=== PATIENT | male | born 1950 | race Two or more races ===

== ENCOUNTER → 2016-07-04 | Outpatient (CLI) | payer MEDICARE, MEDICAID ==
[~2016-07-04] MED LIST: ABILIFY10 MG ORAL; AUGMENTIN 500-1 EACH ORAL; CYMBALTA60 MG ORAL; DOXAZOSIN MESYLA8 MG ORAL; NORCO 5-325 TA1 EACH ORAL; VENLAFAXINE HCL25 MG ORAL; WELLBUTRIN75 MG ORAL
--- NOTE | 2016-07-04 14:57 | GI Initial Consult Note ---
RaisaKendy Kelechi N.PNicole 07/04/16 1457: History of Present Illness General Date patient seen: Jul 04, 2016 Time patient seen: 14:51 Referring physician: STEFAN Reason for Consultation: PANCREATIC LESION Present Illness HPI 66 year old male referred to [facility] by Dr. York to evaluate pancreatic lesion s/ p abdominal pelvis CT & MRI. Patient presents today with occasional abdominal pain, periods of constipation, nausea and abdominal bloating. His last colonoscopy was approximately 3 years ago where the patient states was unremarkable. Home Meds Active Scripts Hydrocodone Bit/Acetaminophen 5-325* (NORCO 5-325*) 1 Each Tablet, 1 TAB ORAL Q6H Y for For Pain, #20 TAB 0 Refills Prov:OSMAN AYALA M.D. 06/14/13 Reported Medications Bupropion Hcl* (WELLBUTRIN*) 75 Mg Tablet, 75 MG ORAL DAILY for 30 Days, TAB 0 Refills 06/14/13 Venlafaxine Hcl* (EFFEXOR*) 25 Mg Tablet, 150 MG ORAL DAILY, TAB 06/14/13 Doxazosin Mesylate (DOXAZOSIN MESYLATE) 8 Mg Tablet, 8 MG ORAL DAILY, TAB 06/14/13 Med list reviewed/reconciled: Yes Allergies: Coded Allergies: No Known Allergies (Unverified , 06/14/13) Patient History History Provided By: Patient, Medical Record PMH Narrative Sleep apnea c PCP PSHMx Prostate CA surgery Social History: Reports: alcohol use - social, other - caffiene, smoking - social Review of Systems All Other Systems: negative except mentioned in HPI Physical Exam T 98.3 BP 120/79 P 85 97 RA HT 5/7 WT 174.3 (denies weight loss) Sp02 EP Interpretation: reviewed General Appearance: well appearing, no apparent distress, alert Head: normocephalic EENT: normal ENT inspection Neck: supple Respiratory: normal breath sounds, no respiratory distress Cardiovascular: normal rate Gastrointestinal: normal inspection, non tender, soft, normal bowel sounds Rectal: deferred Musculoskeletal: back normal Neurologic: normal inspection, alert, oriented x3, responsive Psychiatric: normal inspection, judgement/insight normal Skin: normal inspection, normal color, no rash, warm/dry Lymphatic: normal inspection, no adenopathy GI: Plan Problems: (1) Pancreatic lesion (2) Encounter for diagnostic endoscopy (3) Constipated Plan EUS scheduled on 3/15 - NPO @ [place] day prior procedure acknowledged by patient. Rx Linzess 145mcg Seen with Dr. Galindo. Thank you for referring this patient. NICO GALINDO 07/08/16 0856: History of Present Illness Present Illness Home Meds Active Scripts Hydrocodone Bit/Acetaminophen 5-325* (NORCO 5-325*) 1 Each Tablet, 1 TAB ORAL Q6H Y for For Pain, #20 TAB 0 Refills Prov:OSMAN AYALA M.D. 06/14/13 Reported Medications Bupropion Hcl* (WELLBUTRIN*) 75 Mg Tablet, 75 MG ORAL DAILY for 30 Days, TAB 0 Refills 06/14/13 Venlafaxine Hcl* (EFFEXOR*) 25 Mg Tablet, 150 MG ORAL DAILY, TAB 06/14/13 Doxazosin Mesylate (DOXAZOSIN MESYLATE) 8 Mg Tablet, 8 MG ORAL DAILY, TAB 06/14/13 Allergies: Coded Allergies: No Known Allergies (Unverified , 06/14/13) GI: Plan Plan The patient was seen and examined at bedside and all new and available data was reviewed in the patients chart. I agree with the above findings, impression and plan. (Patient seen earlier today. Signature stamp does not reflect patient encounter time.). -Kendy Kong MD, N.P. Jul 04, 2016 14:57 NICO GALINDO Jul 08, 2016 08:56
[2016-07-04 16:57] VITALS: BP 120/79
== END | disposition home or self-care (01) ==
LOC: PAN 14:10
DX: K59.00 Constipation, unspecified (principal); K86.89 Other specified diseases of pancreas; R11.0 Nausea; F17.200 Nicotine dependence, unspecified, uncomplicated; Z85.46 Personal history of malignant neoplasm of prostate
CPT/HCPCS: 99201

== ENCOUNTER → 2016-07-17 | Day surgery (SDC) | payer MEDICARE, MEDICAID ==
[2016-07-17] VITALS (9 sets, daily range): BP systolic 127–148; BP diastolic 77–92
[~2016-07-17] VITALS: Ht 170.2 cm; Wt 77.1 kg
[~2016-07-17] MED LIST changes: +Hydromorphone 0.5mg/0.5ml inj IVP PRN; +Ketorolac 30mg Inj IV PRN; +Lidocaine 1% MPF 10mg/ml 5ml ONE; +Norco 5mg/325mg tab ORAL PRN; +Propofol 10mg/ml 20ml IV ONE; +fentaNYL 100 mcg/2 mL IV PRN
--- NOTE | 2016-07-17 09:04 | Pre-Procedure Note/Attestation ---
Pre-Procedure Note/Attestation Complete Prior to Procedure Planned Procedure: not applicable Procedure Narrative: eus Indications for Procedure Pre-Operative Diagnosis: pancreatic lesion Attestation I attest that I discussed the nature of the procedure; its benefits; risks and complications; and alternatives (and the risks and benefits of such alternatives ), prior to the procedure, with the patient (or the patient's legal surgical sales representative). I attest that, if there was a reasonable possibility of needing a blood transfusion, the patient (or the patient's legal surgical sales representative) was given the [facility] standardized written summary, pursuant to the [place] Blood Safety Act ([place] Health and Safety Code # 1645, as amended). I attest that I re-evaluated the patient just prior to the surgery and that there has been no change in the patient's H&P, except as documented below: NICO GALINDO Jul 17, 2016 09:04
--- NOTE | 2016-07-17 09:05 | Short Stay Surgery H&P ---
History of Present Illness History of Present Illness Chief Complaint pancreatic lesion HPI Hunter Mean Sr is a 66 year old male who was admitted on for Pancreatic Lesion Patient History Allergies: Coded Allergies: No Known Allergies (Unverified , 06/14/13) PAST MEDICAL HISTORY: (1) Chronic neck pain (2) Medical marijuana use (3) Constipated (4) Pancreatic lesion Past Surgeries: Social History: Medication History Scheduled Amoxicillin/Potassium Clav 500-125 Tablet* (Augmentin 500-125 Tablet*), 1 TAB ORAL THREE TIMES A DAY, (Reported) Bupropion Hcl* (Wellbutrin*), 75 MG ORAL DAILY, (Reported) Duloxetine Hcl* (Cymbalta*), 60 MG ORAL DAILY, (Reported) Discontinued Medications Doxazosin Mesylate (Doxazosin Mesylate), 8 MG ORAL DAILY, (Reported) Discontinued Reason: Pt stopped taking med Hydrocodone Bit/Acetaminophen 5-325* ([place] 5-325*), 1 TAB ORAL Q6H PRN for For Pain Discontinued Reason: Pt stopped taking med Venlafaxine Hcl* (Effexor*), 150 MG ORAL DAILY, (Reported) Discontinued Reason: Pt stopped taking med Review of Systems Cardiovascular: Reports: no symptoms Respiratory: Reports: no symptoms Skeletal: Reports: no symptoms Gastrointestinal: Reports: no symptoms Genitourinary: Reports: no symptoms Neurologic: Reports: no symptoms Endocrine: Reports: no symptoms Hematologic: Reports: no symptoms Physical Exam Vital Signs Last Vital Signs Date Time Temp Pulse Resp B/P Pulse Ox O2 Delivery O2 Flow Rate FiO2 07/17/16 08:14 98.0 71 6 148/87 97 Room Air Skin: normal HENT: normal Heart: normal Lungs: normal Abdomen: normal Extremities: normal Plan Plan of Care eus Final Diagnosis: Attestation Are the patient's medical conditions optimized for surgery? Attestation Response: yes NICO GALINDO Jul 17, 2016 09:05
--- NOTE | 2016-07-17 09:26 | Immediate Post-Op Evaluation ---
Immediate Post-Op Evalulation Immediate Post-Op Evalulation Procedure: EGD Date of Evaluation: Jul 17, 2016 Time of Evaluation: 09:45 IV Fluids: 200 Blood Products: 0 Estimated Blood Loss: 0 Urinary Output: 0 Blood Pressure Systolic: 150 Blood Pressure Diastolic: 87 Pulse Rate: 70 Respiratory Rate: 20 O2 Sat by Pulse Oximetry: 97 Temperature (Fahrenheit): 98 Pain Score (1-10): 2 Nausea: No Vomiting: No Complications na Patient Status: awake Hydration Status: adequate Given Within 1 Hr of Incision: MIC Owens M.D. Jul 17, 2016 09:25
--- NOTE | 2016-07-17 09:27 | Anethesia Preoperative Eval ---
Anesthesia Pre-op PMH/ROS General Date of Evaluation: Jul 17, 2016 Time of Evaluation: 09:26 Anesthesiologist: Jose ASA Score: ASA 2 Mallampati Score Class I : Soft palate, uvula, fauces, pillars visible Class II: Soft palate, uvula, fauces visible Class III: Soft palate, base of uvula visible Class IV: Only hard plate visible Mallampati Classification: Class II Surgeon: Natalya Diagnosis: Abdominal Mass Surgical Procedure: EGD w/ Biopsy Anesthesia History: none Family History: no anesthesia problems Allergies: Coded Allergies: No Known Allergies (Unverified , 06/14/13) Medications: see eMAR Past Medical History Cardiovascular: Reports: HTN Pulmonary: Reports: other - [place] Gastrointestinal/Genitourinary: Denies: CRI, ESRD, GERD, other Neurologic/Psychiatric: Denies: CVA, TIA, dementia, depression/anxiety, other Anesthesia Pre-op Phys. Exam Physician Exam Last Vital Signs Date Time Temp Pulse Resp B/P Pulse Ox O2 Delivery O2 Flow Rate FiO2 07/17/16 08:14 98.0 71 6 148/87 97 Room Air Constitutional: NAD Neurologic: CN 2-12 intact Respiratory: other - Rhonchi Gastrointestinal: S/NT/ND Airway Exam Mallampati Score: Class II MIC GE M.D. Jul 17, 2016 09:27
--- NOTE | 2016-07-17 09:29 | 48 Hour Post Anesthesia Eval ---
Post Anesthesia Evaluation Procedure: EGD Date of Evaluation: Jul 17, 2016 Time of Evaluation: 10:45 Blood Pressure Systolic: 150 0: 86 Pulse Rate: 70 Respiratory Rate: 20 Temperature (Fahrenheit): 97.9 O2 Sat by Pulse Oximetry: 98 Airway: patent Nausea: No Vomiting: No Pain Intensity: 2 Hydration Status: adequate Cardiopulmonary Status: stable Mental Status/LOC: patient returned to baseline Follow-up Care/Observations: na Post-Anesthesia Complications: na Follow-up care needed: N/A MIC GE M.D. Jul 17, 2016 09:29
--- NOTE | 2016-07-17 09:44 | Endoscopy Procedure Note ---
Endoscopy Procedure Note Indication for Procedure: pancreatic lesion Procedures Performed: EGD Operative Findings/Diagnosis: erosions, shallow ulcer Specimen: yes Pt Tolerated Procedure Well: Yes Estimated Blood Loss: none Anesthesiologist: vitor Anesthesia: MAC Implant(s) used?: No 50 yrs or older w/o bx or poly: Not Applicable 10yrs. F/U not recommended: Not Applicable NICO GALINDO Jul 17, 2016 09:44
--- NOTE | 2016-07-17 17:58 | Procedure Note ---
DATE OF PROCEDURE: 07/17/2016 SURGEON: Boone Hoang M.D. REFERRING PHYSICIAN: Tu York M.D. PROCEDURE: Upper endoscopy with biopsy and attempt for EUS. INDICATION: Pancreatic lesion seen on the CT and MRI. INFORMED CONSENT: The procedure, risks, benefits, and possible consequences, including hemorrhage, aspiration, perforation and infection, and alternative treatments, were explained to the patient/legal guardian by Dr. Boone Hoang and the patient/legal guardian understood and accepted these risks. DESCRIPTION OF PROCEDURE: After informed consent was obtained and the patient was adequately sedated, Olympus upper endoscope was advanced from the mouth into the second portion of the duodenum and retroflexion was performed in the stomach. The patient had solid food material in the stomach, so the Anesthesia did not want me to pursue with the EUS. We wrapped it with biopsy of the antrum because there were multiple antral erosions and maybe some shallow ulceration in the antrum. Biopsy from antrum was obtained, and the scope was retrieved and procedure was terminated. SUMMARY OF FINDINGS: 1. Multiple antral erosions and may be one shallow antral ulceration, status post biopsy. 2. We canceled the EUS given the patient had solid food material in the stomach, and Anesthesia did not feel comfortable to proceed. RECOMMENDATIONS: 1. Follow up biopsies and treat accordingly. 2. We recommend repeat endoscopic ultrasound on another day. The patient apparently was in a wedding last night and most probably ate late, so we have to schedule him for another day that his stomach is empty. I want to thank, Dr. Tu York, for this kind referral. Boone Hoang M.D. DR: CHRISTINE JOB#: [id number] CC: Tu York M.D.
--- NOTE | 2016-07-18 13:57 | Cardiology Report ---
APPROVED REPORT EKG Measurement Heart [id number] Normal sinus rhythm Normal ECG
== END | disposition home or self-care (01) ==
LOC: GAS 07:33
DX: K86.9 Disease of pancreas, unspecified (principal); K29.00 Acute gastritis without bleeding; K25.9 Gastric ulcer, unspecified as acute or chronic, without hemorrhage or perforation; G89.29 Other chronic pain; M54.2 Cervicalgia; I10 Essential (primary) hypertension; F12.90 Cannabis use, unspecified, uncomplicated
CPT/HCPCS: 43239; 93005; J2704; 94003; 94150

== ENCOUNTER → 2016-07-24 | Day surgery (SDC) | payer MEDICARE, MEDICAID ==
[2016-07-24] VITALS (12 sets, daily range): BP systolic 97–134; BP diastolic 58–92
[~2016-07-24] VITALS: Ht 170.2 cm; Wt 80.7 kg
[~2016-07-24] MED LIST changes: -Hydromorphone 0.5mg/0.5ml inj IVP PRN; -Ketorolac 30mg Inj IV PRN; +LR 1000ml ONE; -Norco 5mg/325mg tab ORAL PRN; -fentaNYL 100 mcg/2 mL IV PRN
--- NOTE | 2016-07-24 09:05 | Pre-Procedure Note/Attestation ---
Pre-Procedure Note/Attestation Complete Prior to Procedure Planned Procedure: not applicable Procedure Narrative: eus Indications for Procedure Pre-Operative Diagnosis: pancreatic lesion Attestation I attest that I discussed the nature of the procedure; its benefits; risks and complications; and alternatives (and the risks and benefits of such alternatives ), prior to the procedure, with the patient (or the patient's legal teleservices representative). I attest that, if there was a reasonable possibility of needing a blood transfusion, the patient (or the patient's legal teleservices representative) was given the [facility] standardized written summary, pursuant to the [place] Blood Safety Act ([place] Health and Safety Code # 1645, as amended). I attest that I re-evaluated the patient just prior to the surgery and that there has been no change in the patient's H&P, except as documented below: NICO GALINDO Jul 24, 2016 09:05
--- NOTE | 2016-07-24 09:06 | Short Stay Surgery H&P ---
History of Present Illness History of Present Illness Chief Complaint pancreatic lesion HPI Hunter Mena Sr is a 66 year old male who was admitted on for Pancreatic Lession Patient History Allergies: Coded Allergies: No Known Allergies (Unverified , 06/14/13) PAST MEDICAL HISTORY: (1) Encounter for diagnostic endoscopy (2) Constipated (3) Medical marijuana use (4) Chronic neck pain (5) Pancreatic lesion Past Surgeries: Social History: Medication History Scheduled Amoxicillin/Potassium Clav 500-125 Tablet* (Augmentin 500-125 Tablet*), 1 TAB ORAL THREE TIMES A DAY, (Reported) Aripiprazole* (Abilify*), 5 MG ORAL DAILY, (Reported) Bupropion Hcl* (Wellbutrin*), 75 MG ORAL DAILY, (Reported) Duloxetine Hcl* (Cymbalta*), 60 MG ORAL DAILY, (Reported) Discontinued Medications Doxazosin Mesylate (Doxazosin Mesylate), 8 MG ORAL DAILY, (Reported) Discontinued Reason: Pt stopped taking med Hydrocodone Bit/Acetaminophen 5-325* ([place] 5-325*), 1 TAB ORAL Q6H PRN for For Pain Discontinued Reason: Pt stopped taking med Venlafaxine Hcl* (Effexor*), 150 MG ORAL DAILY, (Reported) Discontinued Reason: Pt stopped taking med Review of Systems Cardiovascular: Reports: no symptoms Respiratory: Reports: no symptoms Skeletal: Reports: no symptoms Gastrointestinal: Reports: no symptoms Genitourinary: Reports: no symptoms Neurologic: Reports: no symptoms Endocrine: Reports: no symptoms Hematologic: Reports: no symptoms Physical Exam Vital Signs Last Vital Signs Date Time Temp Pulse Resp B/P Pulse Ox O2 Delivery O2 Flow Rate FiO2 07/24/16 08:33 97.5 58 14 126/75 98 Room Air Skin: normal HENT: normal Heart: normal Lungs: normal Abdomen: normal Extremities: normal Plan Plan of Care eus Final Diagnosis: Attestation Are the patient's medical conditions optimized for surgery? Attestation Response: yes NICO GALINDO Jul 24, 2016 09:05
--- NOTE | 2016-07-24 09:37 | Endoscopy Procedure Note ---
Endoscopy Procedure Note Indication for Procedure: panc lesion Procedures Performed: other - EUS Operative Findings/Diagnosis: same Specimen: none Pt Tolerated Procedure Well: Yes Estimated Blood Loss: none Anesthesiologist: keny Anesthesia: MAC Implant(s) used?: No 50 yrs or older w/o bx or poly: Not Applicable 10yrs. F/U not recommended: Not Applicable NICO GALINDO Jul 24, 2016 09:36
--- NOTE | 2016-07-24 09:47 | Immediate Post-Op Evaluation ---
Immediate Post-Op Evalulation Immediate Post-Op Evalulation Procedure: EuS Date of Evaluation: Jul 24, 2016 Time of Evaluation: 09:46 IV Fluids: 500 Blood Pressure Systolic: 101 Blood Pressure Diastolic: 60 Pulse Rate: 65 Respiratory Rate: 14 O2 Sat by Pulse Oximetry: 99 Nausea: No Vomiting: No Complications none Patient Status: reacts, patent Hydration Status: adequate Drug: none FELIX GARCIA CRNA Jul 24, 2016 09:47
--- NOTE | 2016-07-24 09:48 | Anethesia Preoperative Eval ---
Anesthesia Pre-op PMH/ROS General Date of Evaluation: Jul 24, 2016 Time of Evaluation: 09:00 Anesthesiologist: epi ASA Score: ASA 2 Mallampati Score Class I : Soft palate, uvula, fauces, pillars visible Class II: Soft palate, uvula, fauces visible Class III: Soft palate, base of uvula visible Class IV: Only hard plate visible Mallampati Classification: Class II Surgeon: jessie Diagnosis: pancreatic lesion Surgical Procedure: EUS Anesthesia History: none Family History: no anesthesia problems Allergies: Coded Allergies: No Known Allergies (Unverified , 06/14/13) Medications: see eMAR Past Medical History Cardiovascular: Denies: CAD, HTN, NV, arrhythmia, other, valve dz Gastrointestinal/Genitourinary: Denies: CRI, ESRD, GERD, other Neurologic/Psychiatric: Denies: CVA, TIA, dementia, depression/anxiety, other Endocrine: Denies: DM, hypothyroidism, other, steroids HEENT: Denies: CABAZON (L), CABAZON (R), cataract (L), cataract (R), glaucoma, other Hematology/Immune: Denies: DVT, anemia, bleeding disorder, other Musculoskeletal/Integumentary: Denies: DDD, DJD, OA, RA, edema, other PMH Narrative: pancreatic lesionl Anesthesia Pre-op Phys. Exam Physician Exam Last Vital Signs Date Time Temp Pulse Resp B/P Pulse Ox O2 Delivery O2 Flow Rate FiO2 07/24/16 08:33 97.5 58 14 126/75 98 Room Air Constitutional: NAD Neurologic: CN 2-12 intact Cardiovascular: RRR Respiratory: CTA Gastrointestinal: S/NT/ND Airway Exam Mallampati Classification 2 Mallampati Score: Class II MO: full ROM: full Dentures: no lower, no upper Anesthesia Pre-op A/P Studies Pre-op Studies: EKG - SR Risk Assessment & Plan Plan: mac Status Change Before Surgery: No Pre-Antibiotics Drug: none FELIX GARCIA CRNA Jul 24, 2016 09:48
--- NOTE | 2016-07-24 11:26 | 48 Hour Post Anesthesia Eval ---
Post Anesthesia Evaluation Procedure: EuS Date of Evaluation: Jul 24, 2016 Time of Evaluation: 11:25 Blood Pressure Systolic: 128 0: 80 Pulse Rate: 72 Respiratory Rate: 15 O2 Sat by Pulse Oximetry: 99 Airway: patent Hydration Status: adequate Mental Status/LOC: patient returned to baseline Post-Anesthesia Complications: none Follow-up care needed: N/A FELIX GARCIA CRNA Jul 24, 2016 11:26
--- NOTE | 2016-07-24 17:38 | Procedure Note ---
DATE OF PROCEDURE: 07/24/2016 SURGEON: Boone Hoang M.D. PROCEDURE: Endoscopic ultrasound. ANESTHESIA: Per SOLAR FABRICATION TECHNICIAN, Yohana Barrios. INSTRUMENT: Olympus EUS scope. INDICATION: Pancreatic lesion seen on the CT scan. The procedure, risks, benefits, and possible consequences, including hemorrhage, aspiration, perforation and infection, and alternative treatments, were explained to the patient/legal guardian by Dr. Boone Hoang and the patient/legal guardian understood and accepted these risks. DESCRIPTION OF PROCEDURE: After informed consent was obtained and the patient was adequately sedated, EUS scope was advanced from mouth into the second portion of the duodenum and pancreatic parenchyma was carefully examined through the gastroduodenal mucosa. Starting scanning at the GE junction, the patient had left adrenal gland without any obvious adenoma on it. Celiac axis was seen without any obvious celiac axis lymphadenopathy. Pancreatic parenchyma and the body and tail of the pancreas was within normal limits. No pancreatic dilatation in this area. Then, the scope was advanced into the duodenal bulb and second portion of the duodenum. Gallbladder was seen without any stone. Common bile duct was seen about 3.5 to 4 mm without any filling defect in it. The patient does not have any evidence of obvious pancreatic duct or common bile duct dilatation at this time. There is a nonspecific 1 cm lymph node in the juan miguel hepatis of unknown etiology or unknown significance. At the area of the head of the pancreas, there was about an 8 mm area anechoic. It seems to be might be focal side branch dilatation of the pancreatic duct, may be side branch IPMN. There is no pancreatic duct dilatation at this time. There is little bit of change of echotexture of the pancreatic head with some evidence of hyperechoic stranding suggestive of maybe prior history of pancreatitis. The patient tolerated the procedure well without any complication. SUMMARY OF FINDINGS: 1. Normal left adrenal gland. 2. No obvious celiac axis lymphadenopathy. 3. No common bile duct. No pancreatic duct dilatation. 4. No gallstones or gallbladder polyp. 5. Questionable prior history of pancreatitis in the head with some stranding of the parenchyma. 6. An 8 mm anechoic area in the head of the pancreas suspicious for side branch IPMN. RECOMMENDATIONS: At this time, given there is no main pancreatic duct dilatation and the patient is asymptomatic, we recommend followup and possibly an MRCP in one year. I want to thank, Dr. York, for this kind referral. Boone Hoang M.D. DR: CHRISTINE JOB#: [id number] CC: Tu York M.D.
== END | disposition home or self-care (01) ==
LOC: GAS 07:12
DX: K86.9 Disease of pancreas, unspecified (principal); G89.29 Other chronic pain; M54.2 Cervicalgia
CPT/HCPCS: 43237; J2704; J7120; 94003; 94150